=== PATIENT | male | born 1960 | race Caucasian/White ===

== ENCOUNTER 2021-10-26 14:54 | Inpatient (IN) | payer SELFPAY ==
[2021-10-26 16:00] LABS: #Lymphocytes 1.5 thou/uL (1.20-3.40); #Neutrophils 12.8 thou/uL (1.40-6.50); %Basophils 0.3 % (0.0-1.0); %Eosinophils 0.3 % (0.0-10.0); %Monocytes 6.7 % (0.0-10.0); %Neutrophils 82.7 % (42.0-75.0); Mean Corpuscular HGB CONC 33.9 g/dL (32.0-36.0); Mean Corpuscular Hemoglobin 30.8 pg (27.0-31.0); Mean Corpuscular Volume 90.9 fL (78.0-98.0); Mean Platelet Volume 8.2 fL (7.4-10.4); Platelet Count 162 thou/uL (130-400); RBC Distribution Width 12.5 % (11.5-14.5); Red Blood Cell (RBC) Count 5.21 mill/uL (4.70-6.10); White Blood Cell (WBC) Count 15.4 thou/uL (4.8-10.8)
[2021-10-26 16:19] LABS: ALT (SGPT) 10 U/L (8-55); AST (SGOT) 13 U/L (5-34); Albumin 4.2 g/dL (3.4-4.8); Alkaline Phosphatase 110 U/L (40-110); Anion Gap 20 mmol/L (10-20); BUN (Urea Nitrogen) 39 mg/dL (8.4-25.7); Bilirubin, Total 0.8 mg/dL (0.2-1.2); Calc. Creatinine Clearance 0 mL/min (70-130); Calcium 9.9 mg/dL (7.8-10.44); Carbon Dioxide 17 mmol/L (23-31); Chloride 102 mmol/L (98-107); Globulin 3.7 g/dL (2.4-3.5); Glucose 208 mg/dL (80-115); Potassium 4.5 mmol/L (3.5-5.1); Protein, Total 7.9 g/dL (5.8-8.1); Sodium 134 mmol/L (136-145)
[2021-10-26] MEDS ORDERED: Aspirin 325 MG TAB ONE (16:26)
[2021-10-26] MEDS ORDERED: Ondansetron PF 4 MG/2 ML Vial IVP PRN (16:52)
[2021-10-26] MEDS ORDERED: Ondansetron ODT 4 MG TAB PO PRN (16:52)
[2021-10-26] MEDS ORDERED: Calcium Carbonate 500 MG ChewTAB PO PRN (16:52)
[2021-10-26] MEDS ORDERED: Acetaminophen 325 MG TAB PO PRN (16:52)
[2021-10-26] MEDS ORDERED: Acetaminophen 650 MG Suppository PR PRN (16:52)
[2021-10-26] MEDS ORDERED: Enoxaparin Sodium 40 MG/0.4 ML SYRINGE SC SCH (17:00)
[2021-10-26] MEDS ORDERED: Dextrose 50% Abboject 50 ML SYRINGE SLOW IVP PRN (17:02)
[2021-10-26] MEDS ORDERED: Dextrose 5% in Water 1,000 ML IV PRN (17:02)
[2021-10-26] MEDS ORDERED: HumaLOG 300 UNITS/3 ML VIAL SC PRN (17:02)
[2021-10-26 17:15] LABS: Hemoglobin A1c 8.9 % (4.0-6.0)
[2021-10-26 17:28] LABS: PTT 26.2 sec (22.9-36.1); Prothrombin Time 13.7 sec (12.0-14.7)
[2021-10-26 18:44] VITALS: BMI 33.0
[2021-10-26] MEDS ORDERED: Atorvastatin Calcium 40 MG TAB PO SCH (21:00)
[2021-10-26 23:37] LABS: SARS-CoV-2 PCR by NAA Not Detected (NotDetected)
[2021-10-27 05:50] LABS: #Basophils 0.1 thou/uL (0.0-0.2); #Eosinphils 0.1 thou/uL (0.0-0.7); #Lymphocytes 1.7 thou/uL (1.20-3.40); #Neutrophils 8.2 thou/uL (1.40-6.50); %Basophils 0.5 % (0.0-1.0); %Eosinophils 0.8 % (0.0-10.0); %Lymphocytes 15.1 % (21.0-51.0); %Monocytes 8.8 % (0.0-10.0); %Neutrophils 74.8 % (42.0-75.0); Hemoglobin 14.6 g/dL (14.0-18.0); Mean Corpuscular HGB CONC 33.4 g/dL (32.0-36.0); Mean Corpuscular Hemoglobin 30.2 pg (27.0-31.0); Mean Corpuscular Volume 90.5 fL (78.0-98.0); Mean Platelet Volume 8.3 fL (7.4-10.4); Platelet Count 147 thou/uL (130-400); RBC Distribution Width 12.4 % (11.5-14.5); Red Blood Cell (RBC) Count 4.84 mill/uL (4.70-6.10); White Blood Cell (WBC) Count 10.9 thou/uL (4.8-10.8)
[2021-10-27 06:11] LABS: Anion Gap 15 mmol/L (10-20); BUN (Urea Nitrogen) 29 mg/dL (8.4-25.7); Calc. Creatinine Clearance 123 mL/min (70-130); Calcium 9.4 mg/dL (7.8-10.44); Carbon Dioxide 21 mmol/L (23-31); Cardiac Risk 9.2 (Less than 4.5); Chloride 102 mmol/L (98-107); Cholesterol 165 mg/dl (< 200 Desired); Glucose 114 mg/dL (80-115); HDL Cholesterol 18 mg/dL (>60 Neg Risk); LDL Cholesterol, Calculated 109 mg/dL; Potassium 3.7 mmol/L (3.5-5.1); Sodium 134 mmol/L (136-145); Triglycerides 192 mg/dL (Less than 150)
[2021-10-27] MEDS ORDERED: NIFEdipine XL 60 MG TAB PO SCH (09:00)
[2021-10-27] MEDS ORDERED: Clopidogrel Bisulfate 75 MG TAB PO SCH (09:00)
[2021-10-27] MEDS ORDERED: Lisinopril 20 MG TAB PO SCH (09:00)
[2021-10-27] MEDS ORDERED: Aspirin 81 mg Enteric Coated Tablet PO SCH (09:00)
[2021-10-27] MEDS: metFORMIN 500 MG TAB PO SCH ×2 (09:32→17:45)
[2021-10-27] MEDS: Empagliflozin 10 MG TAB PO SCH ×2 (09:32→17:45)
[2021-10-27] MEDS: Carvedilol 6.25 MG TAB PO SCH ×2 (09:33→17:45)
[2021-10-27] MEDS: HumaLOG 300 UNITS/3 ML VIAL SC PRN (10:59)
[2021-10-27] MEDS ORDERED: Lactated Ringer's 500 ML IV SCH ×3 (16:00→20:30)
[2021-10-27] MEDS: Atorvastatin Calcium 40 MG TAB PO SCH (22:28)
[2021-10-28 06:40] LABS: Anion Gap 13 mmol/L (10-20); BUN (Urea Nitrogen) 31 mg/dL (8.4-25.7); Calc. Creatinine Clearance 110 mL/min (70-130); Calcium 9.1 mg/dL (7.8-10.44); Carbon Dioxide 21 mmol/L (23-31); Chloride 105 mmol/L (98-107); Glucose 118 mg/dL (80-115); Potassium 3.8 mmol/L (3.5-5.1); Sodium 135 mmol/L (136-145)
[2021-10-28] MEDS ORDERED: hydrALAZINE 20 MG/ML VIAL SLOW IVP PRN (08:33)
[2021-10-28] MEDS: Empagliflozin 10 MG TAB PO SCH ×2 (09:50→16:55)
[2021-10-28] MEDS: metFORMIN 500 MG TAB PO SCH ×2 (09:50→16:55)
[2021-10-28 10:03] LABS: #Basophils 0.1 thou/uL (0.0-0.2); #Eosinphils 0.1 thou/uL (0.0-0.7); #Lymphocytes 1.1 thou/uL (1.20-3.40); #Monocytes 0.6 thou/uL (0.11-0.59); #Neutrophils 7.4 thou/uL (1.40-6.50); %Basophils 0.6 % (0.0-1.0); %Eosinophils 1.4 % (0.0-10.0); %Lymphocytes 11.3 % (21.0-51.0); %Monocytes 6.9 % (0.0-10.0); %Neutrophils 79.8 % (42.0-75.0); Hemoglobin 14.2 g/dL (14.0-18.0); Mean Corpuscular HGB CONC 32.9 g/dL (32.0-36.0); Mean Corpuscular Hemoglobin 29.6 pg (27.0-31.0); Mean Platelet Volume 8.3 fL (7.4-10.4); Platelet Count 175 thou/uL (130-400); RBC Distribution Width 12.4 % (11.5-14.5); Red Blood Cell (RBC) Count 4.81 mill/uL (4.70-6.10); White Blood Cell (WBC) Count 9.3 thou/uL (4.8-10.8)
[2021-10-28] MEDS: HumaLOG 300 UNITS/3 ML VIAL SC PRN (11:56)
[2021-10-28] MEDS ORDERED: GoLYTELY 4,000 ml Bottle PO SCH (17:30)
[2021-10-28] MEDS: Atorvastatin Calcium 40 MG TAB PO SCH (22:38)
[2021-10-29 07:57] LABS: Anion Gap 16 mmol/L (10-20); BUN (Urea Nitrogen) 17 mg/dL (8.4-25.7); Calc. Creatinine Clearance 128 mL/min (70-130); Calcium 9.3 mg/dL (7.8-10.44); Carbon Dioxide 22 mmol/L (23-31); Chloride 105 mmol/L (98-107); Glucose 97 mg/dL (80-115); Potassium 3.8 mmol/L (3.5-5.1); Sodium 139 mmol/L (136-145)
[2021-10-29] MEDS ORDERED: PROPOFOL 200 MG/20 ML VIAL ONE (09:29)
[2021-10-29] MEDS ORDERED: Ondansetron HCl/PF 4 MG/2 ML Vial IVP PRN (10:13)
[2021-10-29] MEDS ORDERED: Promethazine HCl 25 MG/ML VIAL IVPB PRN (10:13)
[2021-10-29] MEDS ORDERED: Promethazine HCl 25 MG/ML VIAL IM PRN (10:13)
[2021-10-29] MEDS ORDERED: Iopamidol 370 76% 100 ML VIAL ONE (10:52)
[2021-10-29] MEDS: Empagliflozin 10 MG TAB PO SCH ×2 (11:09→17:00)
[2021-10-29] MEDS: HumaLOG 300 UNITS/3 ML VIAL SC PRN (17:01)
[2021-10-29] MEDS: Atorvastatin Calcium 40 MG TAB PO SCH (21:12)
[2021-10-30 05:50] LABS: Anion Gap 13 mmol/L (10-20); BUN (Urea Nitrogen) 13 mg/dL (8.4-25.7); Calc. Creatinine Clearance 131 mL/min (70-130); Calcium 9.1 mg/dL (7.8-10.44); Carbon Dioxide 23 mmol/L (23-31); Chloride 105 mmol/L (98-107); Glucose 101 mg/dL (80-115); Potassium 3.6 mmol/L (3.5-5.1); Sodium 137 mmol/L (136-145)
[2021-10-30] MEDS: Lisinopril 10 MG TAB PO SCH (10:09)
[2021-10-30] MEDS: Empagliflozin 10 MG TAB PO SCH ×2 (10:10→16:57)
[2021-10-30 14:19] LABS: #Eosinphils 0.2 thou/uL (0.0-0.7); #Lymphocytes 1.6 thou/uL (1.20-3.40); #Monocytes 0.7 thou/uL (0.11-0.59); #Neutrophils 7.8 thou/uL (1.40-6.50); %Basophils 0.5 % (0.0-1.0); %Eosinophils 1.8 % (0.0-10.0); %Lymphocytes 15.5 % (21.0-51.0); %Neutrophils 75.2 % (42.0-75.0); Hemoglobin 14.1 g/dL (14.0-18.0); Mean Corpuscular HGB CONC 33.8 g/dL (32.0-36.0); Mean Corpuscular Hemoglobin 30.6 pg (27.0-31.0); Mean Corpuscular Volume 90.6 fL (78.0-98.0); Mean Platelet Volume 8.5 fL (7.4-10.4); Platelet Count 220 thou/uL (130-400); RBC Distribution Width 12.4 % (11.5-14.5); Red Blood Cell (RBC) Count 4.62 mill/uL (4.70-6.10); White Blood Cell (WBC) Count 10.3 thou/uL (4.8-10.8)
[2021-10-30] MEDS: Atorvastatin Calcium 40 MG TAB PO SCH (20:04)
[2021-10-31] MEDS: Empagliflozin 10 MG TAB PO SCH ×2 (09:13→17:29)
[2021-10-31] MEDS: Lisinopril 10 MG TAB PO SCH (09:14)
[2021-10-31] MEDS: Atorvastatin Calcium 40 MG TAB PO SCH (21:14)
[2021-11-01] MEDS: Empagliflozin 10 MG TAB PO SCH ×2 (08:36→17:25)
[2021-11-01] MEDS: Lisinopril 10 MG TAB PO SCH (08:37)
[2021-11-01] MEDS: Atorvastatin Calcium 40 MG TAB PO SCH (22:10)
[2021-11-02 05:39] LABS: #Basophils 0.1 thou/uL (0.0-0.2); #Eosinphils 0.2 thou/uL (0.0-0.7); #Lymphocytes 2.3 thou/uL (1.20-3.40); #Neutrophils 9.1 thou/uL (1.40-6.50); %Eosinophils 1.9 % (0.0-10.0); %Lymphocytes 17.7 % (21.0-51.0); %Monocytes 8.1 % (0.0-10.0); %Neutrophils 71.2 % (42.0-75.0); Hemoglobin 15.6 g/dL (14.0-18.0); Mean Corpuscular HGB CONC 32.6 g/dL (32.0-36.0); Mean Corpuscular Volume 91.9 fL (78.0-98.0); Mean Platelet Volume 7.9 fL (7.4-10.4); Platelet Count 220 thou/uL (130-400); RBC Distribution Width 12.7 % (11.5-14.5); Red Blood Cell (RBC) Count 5.21 mill/uL (4.70-6.10); White Blood Cell (WBC) Count 12.7 thou/uL (4.8-10.8)
[2021-11-02 05:57] LABS: Anion Gap 15 mmol/L (10-20); BUN (Urea Nitrogen) 11 mg/dL (8.4-25.7); Calc. Creatinine Clearance 119 mL/min (70-130); Calcium 9.5 mg/dL (7.8-10.44); Carbon Dioxide 20 mmol/L (23-31); Chloride 106 mmol/L (98-107); Glucose 113 mg/dL (80-115); Potassium 4.2 mmol/L (3.5-5.1); Sodium 137 mmol/L (136-145)
[2021-11-02] MEDS: Empagliflozin 10 MG TAB PO SCH ×2 (07:53→16:35)
[2021-11-02] MEDS: Lisinopril 10 MG TAB PO SCH (07:53)
[2021-11-02 12:56] LABS: SARS-CoV-2 PCR by NAA Not Detected (NotDetected)
[2021-11-02] MEDS: Atorvastatin Calcium 40 MG TAB PO SCH (20:54)
[2021-11-03] MEDS: Empagliflozin 10 MG TAB PO SCH ×2 (08:30→17:15)
[2021-11-03] MEDS: Lisinopril 10 MG TAB PO SCH (08:30)
[2021-11-03] MEDS ORDERED: Sodium Bicarbonate 2.5 MEQ/5 ML VIAL ONE (10:13)
[2021-11-03] MEDS ORDERED: Midazolam HCl 2 mg/2 ml Vial ONE (10:13)
[2021-11-03] MEDS ORDERED: Fentanyl 100 MCG/2 ML VIAL ONE (10:13)
[2021-11-03] MEDS: HumaLOG 300 UNITS/3 ML VIAL SC PRN (17:15)
[2021-11-03] MEDS ORDERED: Lactated Ringer's 500 ML IV SCH (18:45)
[2021-11-03] MEDS: Atorvastatin Calcium 40 MG TAB PO SCH (22:33)
[2021-11-04] MEDS ORDERED: Lactated Ringer's 500 ML IV SCH (01:15)
[2021-11-04 05:12] LABS: #Basophils 0.1 thou/uL (0.0-0.2); #Eosinphils 0.2 thou/uL (0.0-0.7); #Lymphocytes 1.8 thou/uL (1.20-3.40); #Monocytes 0.8 thou/uL (0.11-0.59); #Neutrophils 7.9 thou/uL (1.40-6.50); %Basophils 0.5 % (0.0-1.0); %Eosinophils 1.5 % (0.0-10.0); %Lymphocytes 16.5 % (21.0-51.0); %Monocytes 7.6 % (0.0-10.0); Hemoglobin 13.7 g/dL (14.0-18.0); Mean Corpuscular HGB CONC 32.2 g/dL (32.0-36.0); Mean Corpuscular Hemoglobin 29.4 pg (27.0-31.0); Mean Corpuscular Volume 91.5 fL (78.0-98.0); Mean Platelet Volume 7.8 fL (7.4-10.4); Platelet Count 169 thou/uL (130-400); RBC Distribution Width 12.7 % (11.5-14.5); Red Blood Cell (RBC) Count 4.66 mill/uL (4.70-6.10); White Blood Cell (WBC) Count 10.7 thou/uL (4.8-10.8)
[2021-11-04 05:35] LABS: Anion Gap 12 mmol/L (10-20); BUN (Urea Nitrogen) 14 mg/dL (8.4-25.7); Calc. Creatinine Clearance 122 mL/min (70-130); Calcium 8.9 mg/dL (7.8-10.44); Carbon Dioxide 25 mmol/L (23-31); Chloride 104 mmol/L (98-107); Glucose 93 mg/dL (80-115); Sodium 137 mmol/L (136-145)
[2021-11-04] MEDS: Lisinopril 10 MG TAB PO SCH (08:48)
[2021-11-04] MEDS: Empagliflozin 10 MG TAB PO SCH ×2 (08:48→16:16)
[2021-11-04] MEDS ORDERED: Aspirin 81 mg Enteric Coated Tablet PO SCH ×2 (11:45→12:45)
[2021-11-04] MEDS: HumaLOG 300 UNITS/3 ML VIAL SC PRN (12:35)
[2021-11-04] MEDS ORDERED: Meclizine HCl 12.5 MG TAB PO PRN (20:37)
[2021-11-04] MEDS ORDERED: Melatonin 3 MG TAB PO SCH (21:00)
[2021-11-04] MEDS: Atorvastatin Calcium 40 MG TAB PO SCH (21:40)
[2021-11-05 05:49] LABS: #Basophils 0.1 thou/uL (0.0-0.2); #Eosinphils 0.2 thou/uL (0.0-0.7); #Lymphocytes 1.5 thou/uL (1.20-3.40); #Monocytes 0.7 thou/uL (0.11-0.59); #Neutrophils 6.8 thou/uL (1.40-6.50); %Basophils 0.7 % (0.0-1.0); %Eosinophils 2.2 % (0.0-10.0); %Lymphocytes 16.5 % (21.0-51.0); %Monocytes 7.9 % (0.0-10.0); %Neutrophils 72.8 % (42.0-75.0); Hemoglobin 14.9 g/dL (14.0-18.0); Mean Corpuscular HGB CONC 34.3 g/dL (32.0-36.0); Mean Corpuscular Hemoglobin 31.9 pg (27.0-31.0); Mean Corpuscular Volume 93.2 fL (78.0-98.0); Platelet Count 173 thou/uL (130-400); Red Blood Cell (RBC) Count 4.67 mill/uL (4.70-6.10); White Blood Cell (WBC) Count 9.3 thou/uL (4.8-10.8)
[2021-11-05] MEDS ORDERED: Aspirin 81 mg Enteric Coated Tablet PO SCH (09:00)
[2021-11-05] MEDS: Lisinopril 10 MG TAB PO SCH (09:39)
[2021-11-05] MEDS: Aspirin 81 mg Enteric Coated Tablet PO SCH (09:39)
[2021-11-05] MEDS: Empagliflozin 10 MG TAB PO SCH ×2 (09:39→16:38)
[2021-11-05] MEDS ORDERED: Magnevist 469MG/ML 20 ML VIAL ONE (10:31)
[2021-11-05 11:28] LABS: ALT (SGPT) 17 U/L (8-55); AST (SGOT) 14 U/L (5-34); Albumin 3.8 g/dL (3.4-4.8); Alkaline Phosphatase 91 U/L (40-110); Anion Gap 13 mmol/L (10-20); BUN (Urea Nitrogen) 14 mg/dL (8.4-25.7); Bilirubin, Total 0.4 mg/dL (0.2-1.2); Calc. Creatinine Clearance 105 mL/min (70-130); Calcium 9.4 mg/dL (7.8-10.44); Carbon Dioxide 23 mmol/L (23-31); Chloride 106 mmol/L (98-107); Globulin 3.5 g/dL (2.4-3.5); Glucose 192 mg/dL (80-115); Potassium 3.9 mmol/L (3.5-5.1); Protein, Total 7.3 g/dL (5.8-8.1); Sodium 138 mmol/L (136-145)
[2021-11-05 13:27] LABS: Syphilis Antibody Nonreactive (Nonreactive); Syphilis Antibody Index 0.09 S/CO (<1.00 Non-Reactive)
[2021-11-05] MEDS ORDERED: Melatonin 3 MG TAB PO SCH (17:00)
[2021-11-05] MEDS: Atorvastatin Calcium 40 MG TAB PO SCH (22:56)
[2021-11-06 05:08] LABS: #Eosinphils 0.4 thou/uL (0.0-0.7); #Lymphocytes 1.6 thou/uL (1.20-3.40); #Monocytes 0.8 thou/uL (0.11-0.59); #Neutrophils 7.5 thou/uL (1.40-6.50); %Basophils 0.5 % (0.0-1.0); %Eosinophils 3.6 % (0.0-10.0); %Lymphocytes 15.6 % (21.0-51.0); %Monocytes 7.3 % (0.0-10.0); %Neutrophils 73.1 % (42.0-75.0); Hemoglobin 14.8 g/dL (14.0-18.0); Mean Corpuscular HGB CONC 33.6 g/dL (32.0-36.0); Mean Corpuscular Hemoglobin 31.8 pg (27.0-31.0); Mean Corpuscular Volume 94.7 fL (78.0-98.0); Mean Platelet Volume 8.3 fL (7.4-10.4); Platelet Count 172 thou/uL (130-400); RBC Distribution Width 12.9 % (11.5-14.5); Red Blood Cell (RBC) Count 4.66 mill/uL (4.70-6.10); White Blood Cell (WBC) Count 10.3 thou/uL (4.8-10.8)
[2021-11-06 05:44] LABS: ALT (SGPT) 15 U/L (8-55); AST (SGOT) 18 U/L (5-34); Albumin 3.5 g/dL (3.4-4.8); Alkaline Phosphatase 86 U/L (40-110); Anion Gap 14 mmol/L (10-20); BUN (Urea Nitrogen) 15 mg/dL (8.4-25.7); Bilirubin, Total 0.5 mg/dL (0.2-1.2); Calc. Creatinine Clearance 121 mL/min (70-130); Calcium 8.9 mg/dL (7.8-10.44); Carbon Dioxide 18 mmol/L (23-31); Chloride 110 mmol/L (98-107); Globulin 3.4 g/dL (2.4-3.5); Glucose 89 mg/dL (80-115); Potassium 4.4 mmol/L (3.5-5.1); Protein, Total 6.9 g/dL (5.8-8.1); Sodium 138 mmol/L (136-145)
[2021-11-06] MEDS: Empagliflozin 10 MG TAB PO SCH (10:26)
[2021-11-06] MEDS: Lisinopril 10 MG TAB PO SCH (10:26)
[2021-11-06] MEDS: Aspirin 81 mg Enteric Coated Tablet PO SCH (10:50)
[2021-11-06 12:29] VITALS: BP 142/87; TEMP 97.9
== END 2021-11-06 16:03 | disposition home or self-care (01) | DRG 64 ==
LOC: ERS 14:54 → NEURO 16:29
PROVIDERS: ADMIT Student in an Organized Health Care Education/Training Program; ATTEND Student in an Organized Health Care Education/Training Program
PROC: 0DBL8ZZ Excision of Transverse Colon, Via Natural or Artificial Opening Endoscopic (ICD-10-PCS; 2021-10-29)
PROC: 0DBP8ZX Excision of Rectum, Via Natural or Artificial Opening Endoscopic, Diagnostic (ICD-10-PCS; 2021-10-29)
PROC: 0TB13ZX Excision of Left Kidney, Percutaneous Approach, Diagnostic (ICD-10-PCS; principal; 2021-11-04)
DX: I63.512 Cerebral infarction due to unspecified occlusion or stenosis of left middle cerebral artery (principal); R29.709 NIHSS score 9; Z20.822 Contact with and (suspected) exposure to COVID-19; I61.1 Nontraumatic intracerebral hemorrhage in hemisphere, cortical; K92.1 Melena; G81.91 Hemiplegia, unspecified affecting right dominant side; C20 Malignant neoplasm of rectum; C64.2 Malignant neoplasm of left kidney, except renal pelvis; I63.532 Cerebral infarction due to unspecified occlusion or stenosis of left posterior cerebral artery; R47.01 Aphasia; I10 Essential (primary) hypertension; H53.47 Heteronymous bilateral field defects; R47.1 Dysarthria and anarthria; R20.8 Other disturbances of skin sensation; R35.0 Frequency of micturition; E78.5 Hyperlipidemia, unspecified; E11.65 Type 2 diabetes mellitus with hyperglycemia; R27.0 Ataxia, unspecified; R20.2 Paresthesia of skin; D12.3 Benign neoplasm of transverse colon; M89.8X8 Other specified disorders of bone, other site; E86.0 Dehydration; I95.1 Orthostatic hypotension; Z79.84 Long term (current) use of oral hypoglycemic drugs; Z83.3 Family history of diabetes mellitus; Z28.21 Immunization not carried out because of patient refusal; Z86.73 Personal history of transient ischemic attack (TIA), and cerebral infarction without residual deficits; Z79.899 Other long term (current) drug therapy; Z98.890 Other specified postprocedural states; Z87.891 Personal history of nicotine dependence
CPT/HCPCS: 36415; 36416; 50200; 70450; 70496; 70498; 70551; 71260; 72197; 74177; 77012; 78306; 80048; 80053; 80061; 82140; 82378; 83036; 84443; 84484; 85025; 85610; 85730; 86780; 87015; 87045; 87046; 87081; 87206; 87427; 87449; 88305; 88333; 88341; 88342; 93005; 93306; A9503; J0360; J1650; J1815; J2250; J2704; J3010; J7120; Q9967; U0003; U0005

== ENCOUNTER 2021-12-01 13:51 | Outpatient (CLI) | payer SELFPAY ==
[2021-12-02 00:24] LABS: SARS-CoV-2 PCR by NAA Not Detected (NotDetected)
== END 2021-12-01 13:52 | disposition home or self-care (01) ==
LOC: LABBT 13:51
PROVIDERS: ATTEND Specialist
DX: C20 Malignant neoplasm of rectum (principal); C64.9 Malignant neoplasm of unspecified kidney, except renal pelvis; Z20.822 Contact with and (suspected) exposure to COVID-19
CPT/HCPCS: U0003; U0005

== ENCOUNTER 2022-11-23 23:46 | Inpatient (IN) | payer SELFPAY ==
[2022-11-24 02:05] LABS: #Eosinphils 0.2 thou/uL (0.0-0.7); #Lymphocytes 1.5 thou/uL (1.20-3.40); #Monocytes 0.6 thou/uL (0.11-0.59); #Neutrophils 4.7 thou/uL (1.40-6.50); %Basophils 0.7 % (0.0-1.0); %Eosinophils 2.3 % (0.0-10.0); %Lymphocytes 20.9 % (21.0-51.0); %Monocytes 8.9 % (0.0-10.0); %Neutrophils 67.2 % (42.0-75.0); Hemoglobin 5.1 g/dL (14.0-18.0); Mean Corpuscular HGB CONC 31.6 g/dL (32.0-36.0); Mean Corpuscular Hemoglobin 25.3 pg (27.0-31.0); Mean Corpuscular Volume 80.2 fl (78.0-98.0); Platelet Count 294 10x3/uL (130-400); RBC Distribution Width 26.9 % (11.5-14.5); Red Blood Cell (RBC) Count 2.03 mill/uL (4.70-6.10); White Blood Cell (WBC) Count 6.9 10x3/uL (4.8-10.8)
[2022-11-24] MEDS ORDERED: Acetaminophen 325 MG TAB PO PRN (02:52)
[2022-11-24] MEDS ORDERED: Ondansetron PF 4 MG/2 ML Vial IVP PRN (02:52)
[2022-11-24] MEDS ORDERED: Dextrose 50% Abboject 50 ML SYRINGE SLOW IVP PRN (03:18)
[2022-11-24] MEDS ORDERED: HumaLOG 300 UNITS/3 ML VIAL SC PRN ×2 (03:18)
[2022-11-24] MEDS ORDERED: Dextrose 5% in Water 1,000 ML IV PRN (03:18)
[2022-11-24 03:29] VITALS: BMI 29.7
[2022-11-24 04:43] LABS: INR-International Normal Ratio 1.3; PTT 27.9 sec (22.9-36.1); Prothrombin Time 17.2 sec (12.0-14.7)
[2022-11-24 04:44] LABS: Hemoglobin 5.3 g/dL (14.0-18.0); Mean Corpuscular HGB CONC 30.5 g/dL (32.0-36.0); Mean Corpuscular Hemoglobin 24.5 pg (27.0-31.0); Mean Corpuscular Volume 80.5 fl (78.0-98.0); Mean Platelet Volume 8.9 fL (7.4-10.4); Platelet Count 285 10x3/uL (130-400); RBC Distribution Width 25.9 % (11.5-14.5); Red Blood Cell (RBC) Count 2.17 mill/uL (4.70-6.10); White Blood Cell (WBC) Count 7.6 10x3/uL (4.8-10.8)
[2022-11-24 04:53] LABS: #Eosinphils 0.2 thou/uL (0.0-0.7); #Lymphocytes 1.5 thou/uL (1.20-3.40); #Monocytes 0.6 thou/uL (0.11-0.59); #Neutrophils 5.3 thou/uL (1.40-6.50); %Basophils 0.6 % (0.0-1.0); %Eosinophils 2.2 % (0.0-10.0); %Lymphocytes 18.9 % (21.0-51.0); %Monocytes 8.4 % (0.0-10.0); %Neutrophils 69.9 % (42.0-75.0)
[2022-11-24 04:57] LABS: Anion Gap 10 mmol/L (10-20); BUN (Urea Nitrogen) 13 mg/dL (8.4-25.7); Calc. Creatinine Clearance 114 mL/min (70-130); Calcium 8.2 mg/dL (7.8-10.44); Carbon Dioxide 22 mmol/L (23-31); Chloride 112 mmol/L (98-107); Estimated GFR 99; Glucose 77 mg/dL (80-115); Sodium 140 mmol/L (136-145)
[2022-11-24 05:45] LABS: SARS-CoV-2 NAA Rapid Test Not Detected (NotDetected)
[2022-11-24 08:37] LABS: Hemoglobin 6.6 g/dL (14.0-18.0)
[2022-11-24] MEDS ORDERED: Iopamidol 370 76% 100 ML VIAL ONE (09:15)
[2022-11-24 09:58] LABS: Iron 28 ug/dL (65-175); Iron Binding Capacity, Total 438 mcg/dL (261-462)
[2022-11-24] MEDS ORDERED: Iron, Sodium Ferric Gluconate 250 MG in Sodium Chloride 0.9% 250 ML 250 ML IVPB SCH (11:00)
[2022-11-24] MEDS ORDERED: Pantoprazole 40 MG VIAL IVP SCH (11:45)
[2022-11-24] MEDS ORDERED: EPINEPHrine 1 MG/ML AMP ONE (13:38)
[2022-11-24] MEDS ORDERED: Ketamine 50 MG/ML (10ML VIAL) ONE (13:41)
[2022-11-24] MEDS ORDERED: Midazolam HCl 2 mg/2 ml Vial ONE (13:41)
[2022-11-24] MEDS ORDERED: PHENYLEPHRINE-NS 100 MCG/ML 10 ML SYRINGE ONE (13:42)
[2022-11-24] MEDS ORDERED: Norepinephrine 4 MG/4 ML VIAL ONE (13:42)
[2022-11-24 14:32] LABS: Hemoglobin 7.6 g/dL (14.0-18.0)
[2022-11-24 18:25] LABS: Hemoglobin 8.2 g/dL (14.0-18.0)
[2022-11-24] MEDS: Pantoprazole 40 MG VIAL IVP SCH (20:00)
[2022-11-25 07:44] LABS: #Eosinphils 0.2 thou/uL (0.0-0.7); #Lymphocytes 1.1 thou/uL (1.20-3.40); #Monocytes 0.9 thou/uL (0.11-0.59); #Neutrophils 6.9 thou/uL (1.40-6.50); %Basophils 0.3 % (0.0-1.0); %Eosinophils 1.9 % (0.0-10.0); %Lymphocytes 12.4 % (21.0-51.0); %Monocytes 9.6 % (0.0-10.0); %Neutrophils 75.8 % (42.0-75.0); Hemoglobin 8.3 g/dL (14.0-18.0); Mean Corpuscular HGB CONC 30.8 g/dL (32.0-36.0); Mean Corpuscular Hemoglobin 25.9 pg (27.0-31.0); Mean Corpuscular Volume 84.3 fl (78.0-98.0); Mean Platelet Volume 8.5 fL (7.4-10.4); Platelet Count 279 10x3/uL (130-400); RBC Distribution Width 23.9 % (11.5-14.5); Red Blood Cell (RBC) Count 3.19 mill/uL (4.70-6.10); White Blood Cell (WBC) Count 9.1 10x3/uL (4.8-10.8)
[2022-11-25 07:46] LABS: Anion Gap 10 mmol/L (10-20); BUN (Urea Nitrogen) 7 mg/dL (8.4-25.7); Calc. Creatinine Clearance 115 mL/min (70-130); Calcium 8.5 mg/dL (7.8-10.44); Carbon Dioxide 22 mmol/L (23-31); Chloride 113 mmol/L (98-107); Estimated GFR 99; Glucose 80 mg/dL (80-115); Potassium 3.8 mmol/L (3.5-5.1); Sodium 141 mmol/L (136-145)
[2022-11-25] MEDS: Pantoprazole 40 MG VIAL IVP SCH ×2 (08:35→19:52)
[2022-11-26 06:54] LABS: Hemoglobin 8.2 g/dL (14.0-18.0); Mean Corpuscular HGB CONC 30.9 g/dL (32.0-36.0); Mean Corpuscular Hemoglobin 26.2 pg (27.0-31.0); Mean Corpuscular Volume 84.8 fl (78.0-98.0); Platelet Count 256 10x3/uL (130-400); RBC Distribution Width 24.2 % (11.5-14.5); Red Blood Cell (RBC) Count 3.11 mill/uL (4.70-6.10); White Blood Cell (WBC) Count 8.4 10x3/uL (4.8-10.8)
[2022-11-26 07:15] LABS: Anion Gap 11 mmol/L (10-20); BUN (Urea Nitrogen) 8 mg/dL (8.4-25.7); Calc. Creatinine Clearance 115 mL/min (70-130); Calcium 8.5 mg/dL (7.8-10.44); Carbon Dioxide 25 mmol/L (23-31); Chloride 110 mmol/L (98-107); Estimated GFR 99; Glucose 80 mg/dL (80-115); Potassium 3.6 mmol/L (3.5-5.1); Sodium 142 mmol/L (136-145)
[2022-11-26 07:18] LABS: #Basophils 0.1 thou/uL (0.0-0.2); #Eosinphils 0.2 thou/uL (0.0-0.7); #Lymphocytes 1.4 thou/uL (1.20-3.40); #Monocytes 0.8 thou/uL (0.11-0.59); #Neutrophils 5.9 thou/uL (1.40-6.50); %Basophils 0.9 % (0.0-1.0); %Eosinophils 2.7 % (0.0-10.0); %Monocytes 9.2 % (0.0-10.0); %Neutrophils 70.2 % (42.0-75.0); Hypochromia SLIGHT = 6-15 cells (100X) (0-5/hpf); MDiff Complete? YES; Ovalocytes SLIGHT = 2-5 cells (100X) (0-1/hpf); Platelet Morphology Comment Appears Adequate; Polychromasia MODERATE = 3-4 cells (100X) (0-2/hpf)
[2022-11-26] MEDS: Pantoprazole 40 MG VIAL IVP SCH ×2 (08:20→21:52)
[2022-11-27] MEDS: Pantoprazole 40 MG VIAL IVP SCH ×2 (08:40→19:44)
[2022-11-28] MEDS: Pantoprazole 40 MG VIAL IVP SCH ×2 (08:31→20:09)
[2022-11-28] MEDS ORDERED: Polyethylene Glycol 3350 17 GM Packet PO SCH (10:00)
[2022-11-28 17:03] LABS: #Basophils 0.1 thou/uL (0.0-0.2); #Eosinphils 0.1 thou/uL (0.0-0.7); #Lymphocytes 0.9 thou/uL (1.20-3.40); #Monocytes 0.7 thou/uL (0.11-0.59); #Neutrophils 6.4 thou/uL (1.40-6.50); %Basophils 0.6 % (0.0-1.0); %Eosinophils 1.2 % (0.0-10.0); %Lymphocytes 10.9 % (21.0-51.0); %Monocytes 8.3 % (0.0-10.0); Hemoglobin 10.6 g/dL (14.0-18.0); Mean Corpuscular HGB CONC 29.5 g/dL (32.0-36.0); Mean Corpuscular Hemoglobin 26.5 pg (27.0-31.0); Mean Corpuscular Volume 89.7 fl (78.0-98.0); Mean Platelet Volume 10.4 fL (7.4-10.4); Platelet Count 229 10x3/uL (130-400); RBC Distribution Width 25.9 % (11.5-14.5); Red Blood Cell (RBC) Count 4.02 mill/uL (4.70-6.10); White Blood Cell (WBC) Count 8.1 10x3/uL (4.8-10.8)
[2022-11-28 17:22] LABS: Anion Gap 14 mmol/L (10-20); BUN (Urea Nitrogen) 8 mg/dL (8.4-25.7); Calc. Creatinine Clearance 107 mL/min (70-130); Calcium 9.5 mg/dL (7.8-10.44); Carbon Dioxide 19 mmol/L (23-31); Chloride 107 mmol/L (98-107); Estimated GFR 97; Glucose 86 mg/dL (80-115); Potassium 3.7 mmol/L (3.5-5.1); Sodium 136 mmol/L (136-145)
[2022-11-28] MEDS: Neomycin 500 mg Tablet PO SCH ×3 (18:34→23:13)
[2022-11-28] MEDS: metroNIDAZOLE 500 MG TAB PO SCH (20:09)
[2022-11-29] MEDS: metroNIDAZOLE 500 MG TAB PO SCH ×2 (08:41→18:30)
[2022-11-29] MEDS: Pantoprazole 40 MG VIAL IVP SCH (08:42)
[2022-11-29] MEDS ORDERED: Fentanyl 250 MCG/5 ML VIAL ONE (13:08)
[2022-11-29] MEDS ORDERED: SUGAMMADEX SODIUM 200 MG/2 ML VIAL ONE (13:08)
[2022-11-29] MEDS ORDERED: HYDROmorphone 2 MG/ML VIAL ONE (13:08)
[2022-11-29] MEDS ORDERED: Sodium Chloride 0.9% 100 ML ONE (13:26)
[2022-11-29] MEDS ORDERED: cefOXitin 2 GM VIAL ONE ×2 (13:26→15:48)
[2022-11-29] MEDS ORDERED: Phenylephrine 10 MG/ML VIAL ONE (13:40)
[2022-11-29] MEDS ORDERED: Lidocaine 1% PF 5 ML VIAL ONE (13:40)
[2022-11-29] MEDS ORDERED: Ondansetron PF 4 MG/2 ML Vial ONE (13:40)
[2022-11-29] MEDS ORDERED: PROPOFOL 200 MG/20 ML VIAL ONE (13:40)
[2022-11-29] MEDS ORDERED: Rocuronium Bromide 10 MG/ML (10ML VIAL) ONE (13:40)
[2022-11-29] MEDS ORDERED: Dexamethasone 20 MG/5 ML VIAL ONE (13:40)
[2022-11-29] MEDS ORDERED: Meperidine HCl/PF 25 MG/ML VIAL SLOW IVP PRN (15:05)
[2022-11-29] MEDS ORDERED: HYDROmorphone 2 MG/ML VIAL SLOW IVP PRN (15:05)
[2022-11-29] MEDS ORDERED: Promethazine HCl 25 MG/ML VIAL IM PRN ×4 (15:05→17:43)
[2022-11-29] MEDS ORDERED: Ondansetron HCl/PF 4 MG/2 ML Vial IVP PRN (17:26)
[2022-11-29] MEDS ORDERED: Naloxone HCl 0.4 mg/ml Vial IV PRN (17:26)
[2022-11-29] MEDS ORDERED: Ondansetron PF 4 MG/2 ML Vial IVP PRN ×2 (17:26→17:43)
[2022-11-29] MEDS ORDERED: diphenhydrAMINE 50 MG/ML VIAL IM PRN (17:26)
[2022-11-29] MEDS ORDERED: diphenhydrAMINE 50 MG/ML VIAL IVP PRN (17:26)
[2022-11-29] MEDS ORDERED: Zolpidem Tartrate 5 MG TAB PO PRN (17:26)
[2022-11-29] MEDS ORDERED: diphenhydrAMINE 25 MG CAP PO PRN (17:26)
[2022-11-29] MEDS ORDERED: FENTANYL 500 MCG/10 ML VIAL 2,000 MCG in Sodium Chloride 0.9% 60 ML IV PRN (17:26)
[2022-11-29] MEDS ORDERED: Communication Order-Pharmacy FS SCH (17:30)
[2022-11-29] MEDS ORDERED: Fentanyl 100 MCG/2 ML VIAL SLOW IVP PRN (17:43)
[2022-11-29] MEDS ORDERED: hydrALAZINE 20 MG/ML VIAL SLOW IVP PRN (17:43)
[2022-11-29] MEDS ORDERED: HumaLOG 300 UNITS/3 ML VIAL SC PRN (17:43)
[2022-11-29] MEDS ORDERED: Ipratropium/Albuterol 3 ML NEB NEB PRN (17:43)
[2022-11-29] MEDS ORDERED: fentaNYL 50 mcg/mL 1 mL Vial ONE ×2 (17:57→18:14)
[2022-11-29] MEDS ORDERED: hydrALAZINE 20 MG/ML VIAL ONE (19:04)
[2022-11-29] MEDS: Sodium Chloride 0.9% 1,000 ML IV SCH (20:52)
[2022-11-29] MEDS: Famotidine 20 MG TAB PO SCH (20:52)
[2022-11-29] MEDS: Famotidine/PF 20 mg/2ml Vial SLOW IVP SCH (20:52)
[2022-11-30] MEDS: cefOXitin 2 GM in Sodium Chloride 0.9% 100 ML IVPB SCH ×2 (01:00→09:51)
[2022-11-30] MEDS: Sodium Chloride 0.9% 1,000 ML IV SCH ×3 (02:20→20:26)
[2022-11-30 06:32] LABS: Anion Gap 7 mmol/L (10-20); BUN (Urea Nitrogen) 10 mg/dL (8.4-25.7); Calc. Creatinine Clearance 111 mL/min (70-130); Calcium 8.5 mg/dL (7.8-10.44); Carbon Dioxide 27 mmol/L (23-31); Chloride 108 mmol/L (98-107); Estimated GFR 98; Glucose 109 mg/dL (80-115); Sodium 138 mmol/L (136-145)
[2022-11-30 06:47] LABS: Hemoglobin 8.5 g/dL (14.0-18.0); Mean Corpuscular HGB CONC 29.9 g/dL (32.0-36.0); Mean Corpuscular Hemoglobin 26.2 pg (27.0-31.0); Mean Corpuscular Volume 87.5 fl (78.0-98.0); Mean Platelet Volume 9.8 fL (7.4-10.4); Platelet Count 168 10x3/uL (130-400); RBC Distribution Width 24.6 % (11.5-14.5); Red Blood Cell (RBC) Count 3.25 mill/uL (4.70-6.10); White Blood Cell (WBC) Count 17.4 10x3/uL (4.8-10.8)
[2022-11-30 08:34] LABS: #Lymphocytes 0.4 thou/uL (1.20-3.40); #Monocytes 0.8 thou/uL (0.11-0.59); #Neutrophils 16.2 thou/uL (1.40-6.50); %Eosinophils 0.1 % (0.0-10.0); %Lymphocytes 2.2 % (21.0-51.0); %Monocytes 4.3 % (0.0-10.0); %Neutrophils 93.3 % (42.0-75.0); Anisocytosis MODERATE=16-30 cells (100X) (0-5/hpf); Hypochromia SLIGHT = 6-15 cells (100X) (0-5/hpf); MDiff Complete? YES; Ovalocytes SLIGHT = 2-5 cells (100X) (0-1/hpf); Platelet Morphology Comment Appears Adequate; Polychromasia SLIGHT = 2-3 cells (100X) (0-2/hpf)
[2022-11-30] MEDS: Famotidine/PF 20 mg/2ml Vial SLOW IVP SCH ×2 (09:51→21:05)
[2022-11-30] MEDS: Famotidine 20 MG TAB PO SCH ×2 (09:51→21:04)
[2022-11-30] MEDS ORDERED: HYDROcodone/Acetaminophen 7.5/325 mg Tablet PO PRN (17:21)
[2022-11-30] MEDS: Acetaminophen 500 MG TAB PO PRN (22:32)
[2022-12-01] MEDS: Sodium Chloride 0.9% 1,000 ML IV SCH ×2 (02:09→17:10)
[2022-12-01] MEDS: Famotidine/PF 20 mg/2ml Vial SLOW IVP SCH ×2 (09:17→21:01)
[2022-12-01] MEDS: Famotidine 20 MG TAB PO SCH ×2 (09:17→21:01)
[2022-12-01] MEDS: HYDROcodone/Acetaminophen 7.5/325 mg Tablet PO PRN (21:00)
[2022-12-01] MEDS: Acetaminophen 500 MG TAB PO PRN (23:43)
[2022-12-02] MEDS: Sodium Chloride 0.9% 1,000 ML IV SCH ×3 (03:14→19:49)
[2022-12-02] MEDS: HYDROcodone/Acetaminophen 7.5/325 mg Tablet PO PRN ×4 (03:17→19:48)
[2022-12-02] MEDS: fentaNYL 50 mcg/mL 1 mL Vial SLOW IVP PRN (05:49)
[2022-12-02] MEDS: Famotidine/PF 20 mg/2ml Vial SLOW IVP SCH ×2 (09:05→20:06)
[2022-12-02] MEDS: Famotidine 20 MG TAB PO SCH ×2 (09:08→19:48)
[2022-12-03] MEDS: fentaNYL 50 mcg/mL 1 mL Vial SLOW IVP PRN (00:43)
[2022-12-03] MEDS: HYDROcodone/Acetaminophen 7.5/325 mg Tablet PO PRN (03:02)
[2022-12-03] MEDS ORDERED: Furosemide 20 MG/2 ML VIAL SLOW IVP SCH (05:15)
[2022-12-03 05:29] LABS: Actual Bicarbonate (HCO3a) 15.3 mEq/L (22-28); Base Excess (BEa) -15.3 mEq/L (-2.0 to +3.0); CO2 Tension 59.7 mmHg (35.0-45.0); Calcium, Ionized (arterial) 1.18 mmol/L (1.12-1.30); Carboxyhemoglobin (COHb) 1.7 gm% (0.0-3.0); Hemoglobin (Hb) 10.5 g/dL (14.0-18.0); Potassium - ABG Lab 4.62 mmol/L (3.70-5.30)
[2022-12-03 05:30] LABS: Hemoglobin 10.1 g/dL (14.0-18.0); Mean Corpuscular HGB CONC 28.4 g/dL (32.0-36.0); Mean Corpuscular Hemoglobin 25.8 pg (27.0-31.0); Mean Corpuscular Volume 90.9 fl (78.0-98.0); Mean Platelet Volume 10.4 fL (7.4-10.4); Platelet Count 181 10x3/uL (130-400); RBC Distribution Width 23.5 % (11.5-14.5); Red Blood Cell (RBC) Count 3.94 mill/uL (4.70-6.10); White Blood Cell (WBC) Count 2.7 10x3/uL (4.8-10.8)
[2022-12-03] MEDS ORDERED: Calcium Chloride 1 GM/10 ML Abboject SYRINGE ONE (05:44)
[2022-12-03] MEDS ORDERED: EPINEPHrine 1 MG/10 ML Abboject SYRINGE ONE (05:44)
[2022-12-03] MEDS ORDERED: Sodium Bicarb 50 MEQ/50 ML Abboject 8.4% SYRINGE ONE (05:44)
[2022-12-03 05:47] LABS: ALT (SGPT) Less than 7 U/L (8-55); AST (SGOT) 9 U/L (5-34); Albumin 2.9 g/dL (3.4-4.8); Alkaline Phosphatase 72 U/L (40-110); Anion Gap 16 mmol/L (10-20); BUN (Urea Nitrogen) 19 mg/dL (8.4-25.7); Bilirubin, Total 1.3 mg/dL (0.2-1.2); Calc. Creatinine Clearance 80 mL/min (70-130); Calcium 8.6 mg/dL (7.8-10.44); Carbon Dioxide 15 mmol/L (23-31); Chloride 107 mmol/L (98-107); Estimated GFR 72; Globulin 3.3 g/dL (2.4-3.5); Glucose 214 mg/dL (80-115); Potassium 4.4 mmol/L (3.5-5.1); Protein, Total 6.2 g/dL (5.8-8.1); Sodium 134 mmol/L (136-145)
[2022-12-03 05:51] LABS: #Lymphocytes 0.8 thou/uL (1.20-3.40); #Monocytes 0.1 thou/uL (0.11-0.59); #Neutrophils 1.8 thou/uL (1.40-6.50); %Basophils 0.9 % (0.0-1.0); %Eosinophils 1.1 % (0.0-10.0); %Lymphocytes 28.8 % (21.0-51.0); %Monocytes 4.6 % (0.0-10.0); %Neutrophils 64.7 % (42.0-75.0)
[2022-12-03] MEDS ORDERED: Scopolamine 1.5 mg/72 hour Patch TD SCH (06:00)
[2022-12-03 07:17] VITALS: BP 96/60; TEMP 97.5
[2022-12-05 01:52] LABS: pH, Arterial 7.03 (7.35-7.45)
[2022-12-05 01:54] LABS: ALV-art Gradient 515.075 mmHg (0-20); Puncture Site LBA
== END 2022-12-03 09:49 | disposition expired | DRG 329 ==
LOC: ERS 23:46 → 2NO 11-24 01:54 → T4-A 11-24 14:27 → PACU-TCU 11-24 14:48 → T4-A 11-24 15:23 → SJJU 11-29 20:18 → CCU 12-03 05:36 → SJJU 12-03 05:58
PROVIDERS: ADMIT Internal Medicine; ATTEND Internal Medicine
PROC: 0DJ08ZZ Inspection of Upper Intestinal Tract, Via Natural or Artificial Opening Endoscopic (ICD-10-PCS; 2022-11-24)
PROC: 30233N1 Transfusion of Nonautologous Red Blood Cells into Peripheral Vein, Percutaneous Approach (ICD-10-PCS; 2022-11-24)
PROC: 3E033XZ Introduction of Vasopressor into Peripheral Vein, Percutaneous Approach (ICD-10-PCS; 2022-11-24)
PROC: 0D1B0Z4 Bypass Ileum to Cutaneous, Open Approach (ICD-10-PCS; 2022-11-29)
PROC: 0DBP0ZZ Excision of Rectum, Open Approach (ICD-10-PCS; 2022-11-29)
PROC: 5A12012 Performance of Cardiac Output, Single, Manual (ICD-10-PCS; principal; 2022-12-03)
PROC: 4A133R1 Monitoring of Arterial Saturation, Peripheral, Percutaneous Approach (ICD-10-PCS; 2022-12-03)
DX: C20 Malignant neoplasm of rectum (principal); J69.0 Pneumonitis due to inhalation of food and vomit; J96.01 Acute respiratory failure with hypoxia; C64.2 Malignant neoplasm of left kidney, except renal pelvis; D62 Acute posthemorrhagic anemia; K92.1 Melena; E87.1 Hypo-osmolality and hyponatremia; C77.2 Secondary and unspecified malignant neoplasm of intra-abdominal lymph nodes; I69.354 Hemiplegia and hemiparesis following cerebral infarction affecting left non-dominant side; I25.10 Atherosclerotic heart disease of native coronary artery without angina pectoris; I65.23 Occlusion and stenosis of bilateral carotid arteries; E88.09 Other disorders of plasma-protein metabolism, not elsewhere classified; E11.9 Type 2 diabetes mellitus without complications; Z20.822 Contact with and (suspected) exposure to COVID-19; E78.5 Hyperlipidemia, unspecified; C61 Malignant neoplasm of prostate; I10 Essential (primary) hypertension; D63.0 Anemia in neoplastic disease; Z79.02 Long term (current) use of antithrombotics/antiplatelets; Z86.711 Personal history of pulmonary embolism; Z79.82 Long term (current) use of aspirin; Z79.899 Other long term (current) drug therapy; Z79.84 Long term (current) use of oral hypoglycemic drugs; Z98.890 Other specified postprocedural states; Z87.891 Personal history of nicotine dependence; Z60.2 Problems related to living alone
CPT/HCPCS: 36415; 36416; 36430; 36600; 71045; 71260; 74177; 80048; 80053; 82728; 82805; 83540; 83550; 85025; 85610; 85730; 86850; 86900; 86901; 88309; 99284; A4649; C9113; J0171; J0360; J0694; J1100; J1170; J1650; J1940; J2250; J2370; J2405; J2704; J2916; J3010; J3490; J7050; P9016; Q9967; S0028; U0002